=== PATIENT | female | born 1975 | race Caucasian/White ===

== ENCOUNTER → 2016-09-27 | Outpatient (CLI) | payer OTHER ==
[~2016-09-27] MED LIST: AMBI5TAB PO; PROZ20CA11 PO; RISP1TAB3 PO; TRAZ50TA2 PO; VALI2TAB PO; VALI5TAB PO; XANA1TAB2 PO; ZOLO25TA PO
--- NOTE | 2016-09-28 10:01 | SLEEPCENT ---
DATE OF PROCEDURE: 09/27/2016 REQUESTING PROVIDER: Jada Campbell NP INTERPRETATION: Nocturnal polysomnography was performed for the titration of pressure therapy in this patient with obstructive sleep apnea syndrome, confirmed by home testing, which reveals a respiratory event index of 5.1. For testing, a ID Watchdog Simplus full face mask of small size was used, 4 cm of water pressure were applied to the circuit and the lights were extinguished. 7 hours and 15 minutes of data were reviewed. There were 385 minutes of sleep identified. Sleep latency was normal at 12.5 minutes. Rapid eye movement (REM) latency was delayed at 145 minutes. Sleep architecture improved with optimal pressure therapy. There was some evidence of REM rebound. Overall sleep efficiency was 89.5%. The patient's electrocardiogram (EKG) showed a sinus rhythm with an average heart rate of 64 beats per minute. Electroencephalogram (EEG) showed mild coarsening in the background, otherwise normal waveforms for awake and sleep. No focal events were identified. Respiratory events were best palliated with a CPAP at a pressure of +6. CPAP tolerance was good. Remaining measures of sleep physiology were normal. IMPRESSION: 1. Obstructive sleep apnea syndrome (G47.33). RECOMMENDATIONS: Nightly use of pressure therapy at 6 cm of water.
== END ==
LOC: M SLEEP 19:31
PROVIDERS: ATTEND Nurse Practitioner Adult Health
DX: G47.33 Obstructive sleep apnea (adult) (pediatric) (principal)

== ENCOUNTER → 2016-09-29 | Outpatient (CLI) | payer OTHER ==
--- NOTE | 2016-09-29 14:25 | REPMRS ---
Patient History The patient states she has not had a clinical breast exam in over a year. No known family history of cancer. Taking hormonal contraceptives for 21 years. Digital Woman Screen Mammo: September 29, 2016 - Exam #: [id number] Bilateral CC and MLO view(s) were taken. Technologist: Leilani Plunkett, Technologist Prior study comparison: October 06, 2015, digital woman screen mammo performed at [facility]. FINDINGS: There are scattered fibroglandular densities. There is a moderate amount of residual fibroglandular tissue which is fairly symmetric. There is no interval development of dominant mass, architectural distortion, or clustered microcalcification typical of malignancy. There has been no change in the appearance of the mammogram from the prior studies. ASSESSMENT: BI-RADS/ACR category 1 mammogram. Negative. Recommendation Routine screening mammogram of both breasts in 1 year (for women over age 40). This mammogram was interpreted with the aid of an FDA-approved computer-aided dectection system. Electronically Signed By: Mitchell Malloy MD 09/29/16 [id number]
== END ==
LOC: M WHC 12:58
PROVIDERS: ATTEND Nurse Practitioner Family
DX: Z12.31 Encounter for screening mammogram for malignant neoplasm of breast (principal)

== ENCOUNTER → 2016-10-06 | Outpatient (REF) | payer OTHER ==
[2016-10-06 12:24] LABS: BASO # 0.1 K/mm3 (0.0-0.2); BASO % 0.9 % (0.0-1.0); EOS % 0.5 % (0.0-3.0); LARGE UNSTAINED CELL # 0.1 K/mm3 (0.0-0.4); LARGE UNSTAINED CELL % 0.7 % (0.0-4.0); LYMPH # 2.3 K/mm3 (1.5-4.5); LYMPH % 20.7 % (24.0-44.0); MEAN CORPUSCULAR HEMOGLOBIN 31.4 pg (27.0-33.0); MEAN CORPUSCULAR HGB CONC 32.3 g/dl (32.0-36.5); MEAN CORPUSCULAR VOLUME 97.2 fl (80.0-96.0); MONO # 0.4 K/mm3 (0.0-0.8); NEUTROPHILS % 73.2 % (36.0-66.0); PLATELET COUNT, AUTOMATED 283 k/mm3 (150-450); RED CELL DISTRIBUTION WIDTH 12.6 % (11.5-14.5); WHITE BLOOD COUNT 10.9 K/mm3 (4.0-10.0)
[2016-10-06 13:41] LABS: ERYTHROCYTE SEDIMENTATION RATE 13 mm/hr (0-20)
== END ==
LOC: M SFHCPLAZ 08:53
PROVIDERS: ATTEND Internal Medicine Infectious Disease
DX: D72.829 Elevated white blood cell count, unspecified (principal)

== ENCOUNTER → 2017-11-28 | Outpatient (CLI) | payer BC | LOC: M WHC 15:21 | DX: Z12.31 Encounter for screening mammogram for malignant neoplasm of breast (principal); Z92.0 Personal history of contraception | CPT/HCPCS: 77067 ==

== ENCOUNTER → 2018-04-27 | Outpatient (REF) | payer BC ==
[2018-04-27 19:57] LABS: BASO % 0.5 % (0.0-1.0); EOS # 0.2 10^3/uL (0.0-0.50); EOS % 2.9 % (0.0-3.0); HEMATOCRIT 40.2 % (36.0-47.0); HEMOGLOBIN 13.2 g/dl (12.0-15.5); IMMATURE GRANULOCYTE % 0.1 % (0-3.0); LYMPH # 3.6 10^3/uL (1.5-4.5); MEAN CORPUSCULAR HGB CONC 32.8 g/dl (32.0-36.5); MEAN CORPUSCULAR VOLUME 100.5 fl (80.0-96.0); MONO # 0.5 10^3/uL (0.0-0.8); MONO % 6.3 % (0.0-5.0); NEUTROPHILS # 3.6 10^3/uL (1.8-7.7); NEUTROPHILS % 45.2 % (36.0-66.0); PLATELET COUNT, AUTOMATED 242 10^3/uL (150-450); RED CELL DISTRIBUTION WIDTH 12.2 % (11.5-14.5)
[2018-04-27 20:05] LABS: ALBUMIN 3.5 GM/DL (3.2-5.2); ALBUMIN/GLOBULIN RATIO 1.06 (1.00-1.93); ALKALINE PHOSPHATASE 72 U/L (45-117); ALT/SGPT 21 U/L (12-78); ANION GAP 6 MEQ/L (8-16); AST/SGOT 10 U/L (7-37); BILIRUBIN,TOTAL 0.2 MG/DL (0.2-1.0); BLOOD UREA NITROGEN 13 MG/DL (7-18); CALCIUM LEVEL 8.3 MG/DL (8.5-10.1); CARBON DIOXIDE LEVEL 27 MEQ/L (21-32); CHLORIDE LEVEL 111 MEQ/L (98-107); CREATININE FOR GFR 0.79 MG/DL (0.55-1.30); FERRITIN 64 NG/ML (8-252); GLOMERULAR FILTRATION RATE > 60.0 (>58); GLUCOSE, FASTING 75 MG/DL (70-100); IRON (FE) 56 UG/DL (50-170); PERCENT SATURATION 20.8 % (13.2-45.0); POTASSIUM SERUM 4.4 MEQ/L (3.5-5.1); SODIUM LEVEL 144 MEQ/L (136-145); TOTAL IRON BINDING CAPACITY 269 UG/DL (250-450); TOTAL PROTEIN 6.8 GM/DL (6.4-8.2)
[2018-04-27 20:10] LABS: TOTAL 25(OH) VITAMIN D 23.5 NG/ML (30.0-100.0); VITAMIN B12 LEVEL 434 PG/ML (247-911)
[2018-04-27 21:34] LABS: ERYTHROCYTE SEDIMENTATION RATE 10 mm/hr (0-20)
== END ==
LOC: M SFHCLERA 15:19
DX: G43.011 Migraine without aura, intractable, with status migrainosus (principal); D50.9 Iron deficiency anemia, unspecified
CPT/HCPCS: 83550

== ENCOUNTER 2018-12-10 10:36 | Emergency (ER) | payer BC ==
[~2018-12-10] VITALS: Ht 160 cm; Wt 79.5 kg
[2018-12-10] MEDS ORDERED: GI COCKTAIL 50ML BTL(HYOSCYAMINE/MAALOX/LIDOCAINE VISCOUS)(1:3:1) PO ONE (11:00)
[2018-12-10 11:31] LABS: BASO % 0.1 % (0.0-1.0); EOS % 0.4 % (0.0-3.0); HEMATOCRIT 42.1 % (36.0-47.0); HEMOGLOBIN 13.9 g/dl (12.0-15.5); LYMPH # 1.5 10^3/uL (1.5-4.5); LYMPH % 18.3 % (24.0-44.0); MEAN CORPUSCULAR HEMOGLOBIN 32.2 pg (27.0-33.0); MEAN CORPUSCULAR VOLUME 97.5 fl (80.0-96.0); MONO # 0.3 10^3/uL (0.0-0.8); MONO % 3.6 % (0.0-5.0); NEUTROPHILS # 6.4 10^3/uL (1.8-7.7); NEUTROPHILS % 77.2 % (36.0-66.0); PLATELET COUNT, AUTOMATED 183 10^3/uL (150-450); RED BLOOD COUNT 4.32 10^6/uL (4.00-5.40); WHITE BLOOD COUNT 8.3 10^3/uL (4.0-10.0)
--- NOTE | 2018-12-10 11:50 | REP ---
CHEST, TWO VIEWS: There is no evidence of acute infiltrate. No pleural effusion is seen. The heart is normal in size. The mediastinal silhouette is unremarkable. The visualized osseous structures are intact. IMPRESSION: No acute pulmonary disease. Electronically Signed by Alvin Sanchez MD 12/10/2018 06:10 P
[2018-12-10 12:27] LABS: ALBUMIN 3.6 GM/DL (3.2-5.2); ALT/SGPT 86 U/L (12-78); BILIRUBIN,DIRECT 0.2 MG/DL (0.0-0.2); BILIRUBIN,TOTAL 0.4 MG/DL (0.2-1.0); BLOOD UREA NITROGEN 10 MG/DL (7-18); CALCIUM LEVEL 8.1 MG/DL (8.5-10.1); CARBON DIOXIDE LEVEL 21 MEQ/L (21-32); CHLORIDE LEVEL 117 MEQ/L (98-107); CK-MB VALUE MASS < 1.0 NG/ML (<3.6); CPK CREATINE PHOSPHOKINASE 70 U/L (26-192); GLOMERULAR FILTRATION RATE > 60.0 (>58); GLUCOSE, FASTING 103 MG/DL (70-100); LIPASE 4025 U/L (73-393); MB/CK RELATIVE INDEX 1.43 (< OR =4); POTASSIUM SERUM 4.3 MEQ/L (3.5-5.1); SODIUM LEVEL 146 MEQ/L (136-145); TOTAL PROTEIN 6.5 GM/DL (6.4-8.2); TROPONIN I < 0.02 NG/ML (< 0.10)
[2018-12-10] MEDS ORDERED: ISOVUE-370 76% 125ML VIAL (Q9967 PER ML) As Ordered ONE (12:37)
--- NOTE | 2018-12-10 13:56 | REP ---
CT ANGIOGRAM CHEST: TECHNIQUE: Axial contrast enhanced images from the thoracic inlet to the upper abdomen using 100 mL Isovue 370 intravenous contrast material with multiplanar reformations. There is no CT evidence of pulmonary embolism. There is no thoracic aortic aneurysm or dissection. Heart is normal in size. There is no mediastinal, hilar, or chest wall lymphadenopathy. There is no pleural or pericardial effusion. I see no evidence of acute infiltrate in either lung. There is a small hiatal hernia. There are mild degenerative changes of the spine. IMPRESSION: No CT evidence of pulmonary embolism. Small hiatal hernia. Electronically Signed by Alvin Sanchez MD 12/10/2018 06:15 P
[2018-12-10] MEDS ORDERED: OMEP40CA2 PO (14:04)
[2018-12-10] MEDS ORDERED: ONDA4TAB6 PO (14:04)
[2018-12-10] MEDS ORDERED: OXYC-517 PO (14:04)
[2018-12-10 14:17] VITALS: BP 93/59
--- NOTE | 2018-12-10 14:22 | REP ---
CT ABDOMEN AND PELVIS WITH IV CONTRAST: TECHNIQUE: Axial contrast enhanced images from the lung bases to the pubic symphysis using 100 mL Isovue 370 intravenous contrast material with multiplanar reformations. Liver, spleen, adrenals, pancreas, and kidneys are unremarkable. There is no hydronephrosis bilaterally. There is an ill-defined density in the gallbladder lumen probably representing sludge. There is no gallbladder wall thickening or edema. There is no evidence of biliary dilatation. There is no abdominal aortic aneurysm. There is no adenopathy. There is no free air or free fluid. I see no bowel wall thickening. There is no evidence of appendicitis. Dominant follicle of the right ovary measures 2.4 cm in diameter. Urinary bladder appears unremarkable. IMPRESSION: Ill-defined density in the gallbladder lumen probably representing gallbladder sludge. No other acute finding. Electronically Signed by Alvin Sanchez MD 12/10/2018 06:16 P
--- NOTE | 2018-12-10 20:02 | ECGEPIP ---
Stationary ECG Study - ED Test Date: 2018-12-10 Pat Name: CHANTE GOODSON Department: Room: - Gender: F Internet [employer] Intern: ANNIE : 1975 Requested By: SHAUN VILLALTA Order Number: [id number] Reading MD: Dinesh Burton Measurements Intervals [place] Rate: 71 P: 41 NH: 151 QRS: 58 QRSD: 92 T: 35 QT: 393 QTc: 429 Interpretive Statements SINUS RHYTHM WITH SINUS ARRHYTHMIA SIMILAR TO 10/06/13 Electronically Signed On 12-10-2018 20:02:14 EDT by Dinesh Burton
== END 2018-12-10 14:18 | disposition home or self-care (01) ==
LOC: M ED 10:36
DX: K83.9 Disease of biliary tract, unspecified (principal); K85.12 Biliary acute pancreatitis with infected necrosis; F42.9 Obsessive-compulsive disorder, unspecified; G47.00 Insomnia, unspecified; K44.9 Diaphragmatic hernia without obstruction or gangrene; Z79.899 Other long term (current) drug therapy
CPT/HCPCS: 71046; 71275; 74177; 80048; 80076; 82550; 82553; 83690; 84443; 84484; 85025; 85379; 93005; 93041; 94760; 99285; Q9967

== ENCOUNTER → 2018-12-13 | Outpatient (REF) | payer BC ==
[~2018-12-13] MED LIST changes: +OMEP40CA2 PO; +ONDA4TAB6 PO; +OXYC-517 PO
[2018-12-13 16:42] LABS: BASO % 0.4 % (0.0-1.0); EOS # 0.2 10^3/uL (0.0-0.50); EOS % 2.1 % (0.0-3.0); HEMATOCRIT 41.4 % (36.0-47.0); HEMOGLOBIN 13.7 g/dl (12.0-15.5); LYMPH # 3.1 10^3/uL (1.5-4.5); LYMPH % 40.5 % (24.0-44.0); MEAN CORPUSCULAR HGB CONC 33.1 g/dl (32.0-36.5); MEAN CORPUSCULAR VOLUME 96.7 fl (80.0-96.0); MONO # 0.4 10^3/uL (0.0-0.8); MONO % 4.6 % (0.0-5.0); NEUTROPHILS % 52.1 % (36.0-66.0); PLATELET COUNT, AUTOMATED 196 10^3/uL (150-450); RED BLOOD COUNT 4.28 10^6/uL (4.00-5.40); WHITE BLOOD COUNT 7.6 10^3/uL (4.0-10.0)
[2018-12-13 16:51] LABS: HEMOGLOBIN A1c 5.2 %
[2018-12-13 17:08] LABS: ALBUMIN 3.9 GM/DL (3.2-5.2); ALT/SGPT 118 U/L (12-78); BILIRUBIN,TOTAL 0.2 MG/DL (0.2-1.0); BLOOD UREA NITROGEN 13 MG/DL (7-18); CALCIUM LEVEL 8.3 MG/DL (8.5-10.1); CARBON DIOXIDE LEVEL 22 MEQ/L (21-32); CHLORIDE LEVEL 110 MEQ/L (98-107); CREATININE FOR GFR 1.04 MG/DL (0.55-1.30); GLOMERULAR FILTRATION RATE > 60.0 (>58); GLUCOSE, FASTING 71 MG/DL (70-100); LIPASE 106 U/L (73-393); POTASSIUM SERUM 3.9 MEQ/L (3.5-5.1); SODIUM LEVEL 140 MEQ/L (136-145); TOTAL PROTEIN 6.9 GM/DL (6.4-8.2)
[2018-12-13 17:27] LABS: HEPATITIS B SURFACE ANTIGEN NEGATIVE (NEGATIVE)
[2018-12-13 17:54] LABS: HEPATITIS C VIRUS ABY INDEX 0.1 INDEX (<0.8)
[2018-12-13 17:55] LABS: HEPATITIS B CORE ANTIBODY IGM NEGATIVE (NEGATIVE)
[2018-12-13 17:57] LABS: HEPATITIS A ANTIBODY IGM NEGATIVE (NEGATIVE)
== END ==
LOC: M SFHCLERA 14:17
PROVIDERS: ATTEND Family Medicine
DX: K85.90 Acute pancreatitis without necrosis or infection, unspecified (principal); R94.5 Abnormal results of liver function studies

== ENCOUNTER → 2018-12-15 | Outpatient (CLI) | payer BC ==
--- NOTE | 2018-12-15 10:42 | REP ---
Four-quadrant sonography: History: Acute pancreatitis. Comparison CT study December 10, 2018. Sonographic findings: Scanning through right upper quadrant of the abdomen demonstrates a normal sized thin-walled gallbladder containing shadowing calculi. Gallstones are fairly large measuring up to 1.5 cm in greatest diameter. Common bile duct is normal measuring 0.5 cm. No focal liver lesion is seen. No pancreatic abnormality is observed. There is no evidence of ascites or right renal abnormality. The right kidney measures 12.0 x 5.3 x 3.9 cm. Impression: Cholelithiasis. Multiple stones in the gallbladder. Normal common bile duct. No pancreatic abnormality noted. Electronically Signed by Randell Malloy MD 12/15/2018 02:31 P
== END ==
LOC: M LRY 09:14
PROVIDERS: ATTEND Family Medicine
DX: K80.20 Calculus of gallbladder without cholecystitis without obstruction (principal)

== ENCOUNTER → 2018-12-27 | Outpatient (CLI) | payer BC ==
[2018-12-27 11:50] LABS: HEMATOCRIT 39.2 % (36.0-47.0); HEMOGLOBIN 12.8 g/dl (12.0-15.5); MEAN CORPUSCULAR HGB CONC 32.7 g/dl (32.0-36.5); PLATELET COUNT, AUTOMATED 224 10^3/uL (150-450); WHITE BLOOD COUNT 11.7 10^3/uL (4.0-10.0)
[2018-12-27 12:23] LABS: ALBUMIN 3.6 GM/DL (3.2-5.2); ALT/SGPT 78 U/L (12-78); BILIRUBIN,TOTAL 0.2 MG/DL (0.2-1.0); BLOOD UREA NITROGEN 10 MG/DL (7-18); CALCIUM LEVEL 8.2 MG/DL (8.5-10.1); CARBON DIOXIDE LEVEL 21 MEQ/L (21-32); CHLORIDE LEVEL 115 MEQ/L (98-107); CREATININE FOR GFR 1.02 MG/DL (0.55-1.30); GLOMERULAR FILTRATION RATE > 60.0 (>58); GLUCOSE, FASTING 83 MG/DL (70-100); LIPASE 122 U/L (73-393); POTASSIUM SERUM 3.9 MEQ/L (3.5-5.1); SODIUM LEVEL 142 MEQ/L (136-145); TOTAL PROTEIN 6.2 GM/DL (6.4-8.2)
== END ==
LOC: M LAB 11:04
PROVIDERS: ATTEND Surgery
DX: R10.11 Right upper quadrant pain (principal)

== ENCOUNTER → 2018-12-28 | Outpatient (CLI) | payer BC ==
[2018-12-28 12:41] LABS: BASO % 0.3 % (0.0-1.0); EOS # 0.1 10^3/uL (0.0-0.50); EOS % 0.9 % (0.0-3.0); HEMATOCRIT 39.2 % (36.0-47.0); HEMOGLOBIN 12.9 g/dl (12.0-15.5); LYMPH # 2.7 10^3/uL (1.5-4.5); LYMPH % 26.3 % (24.0-44.0); MEAN CORPUSCULAR HEMOGLOBIN 31.9 pg (27.0-33.0); MEAN CORPUSCULAR HGB CONC 32.9 g/dl (32.0-36.5); MEAN CORPUSCULAR VOLUME 96.8 fl (80.0-96.0); MONO # 0.4 10^3/uL (0.0-0.8); MONO % 3.6 % (0.0-5.0); NEUTROPHILS # 6.9 10^3/uL (1.8-7.7); NEUTROPHILS % 68.6 % (36.0-66.0); PLATELET COUNT, AUTOMATED 218 10^3/uL (150-450); RED BLOOD COUNT 4.05 10^6/uL (4.00-5.40); WHITE BLOOD COUNT 10.1 10^3/uL (4.0-10.0)
[2018-12-28 13:10] LABS: ALBUMIN 3.5 GM/DL (3.2-5.2); BILIRUBIN,DIRECT 0.1 MG/DL (0.0-0.2); BILIRUBIN,TOTAL 0.3 MG/DL (0.2-1.0); TOTAL PROTEIN 6.4 GM/DL (6.4-8.2)
== END ==
LOC: M LAB 12:13
PROVIDERS: ATTEND Internal Medicine Gastroenterology
DX: R10.816 Epigastric abdominal tenderness (principal)

== ENCOUNTER 2019-01-16 13:55 | Day surgery (SDC) | payer BC ==
[~2019-01-16] VITALS: Ht 160 cm; Wt 77.6 kg
[~2019-01-16 13:55] MED LIST changes: +BUTA1CAP PO; +FLUV100T2 PO; +IBUP-1114 PO; +LIDOCAINE 1% MDV 20ML VIAL SQ PRN; +LR 1,000 ML IV ONE; +ORTH1TAB15 PO; +PANT40TA3 PO; +TOPI200T7 PO; +TRAZ150T90 PO; +ceFAZolin SOD 1 GM in D5W MINI-BAG PLUS 50 ML IV ONE
[2019-01-16 14:24] LABS: URINE PREG TEST NEGATIVE (NEGATIVE)
[2019-01-16 15:04] LABS: BILIRUBIN,TOTAL 0.3 MG/DL (0.2-1.0); CALCIUM LEVEL 8.7 MG/DL (8.5-10.1); CREATININE FOR GFR 1.22 MG/DL (0.55-1.30); GLOMERULAR FILTRATION RATE 50.7 (>58); TOTAL PROTEIN 7.5 GM/DL (6.4-8.2)
[2019-01-16] MEDS ORDERED: BUPIVACAINE HCL 0.25% 30 ML VIAL As Ordered ONE (15:13)
[2019-01-16] MEDS ORDERED: CONRAY-60 60% 50ML VIAL (Q9961) As Ordered ONE (15:13)
[2019-01-16] MEDS ORDERED: GLUCAGON FOR INJ 1 MG VIAL (J1610) As Ordered ONE (15:13)
[2019-01-16] MEDS ORDERED: ROCURONIUM BROMIDE 50 MG/5 ML VIAL As Ordered ONE (15:19)
[2019-01-16] MEDS ORDERED: PROPOFOL 200 MG/20 ML VIAL As Ordered ONE (15:19)
[2019-01-16] MEDS ORDERED: fentaNYL 100 MCG/2 ML INJECTION (J3010) As Ordered ONE ×2 (15:19→16:02)
[2019-01-16] MEDS ORDERED: MIDAZOLAM INJ 2 MG/2 ML VIAL (J2250) As Ordered ONE (15:20)
[2019-01-16] MEDS ORDERED: LIDOCAINE 2% INJ 100 MG/5 ML SDV (FOR ANES.) As Ordered ONE (15:20)
[2019-01-16] MEDS ORDERED: BUPIVACAINE/EPIN 0.25% 30 ML VIAL As Ordered ONE (15:42)
[2019-01-16] MEDS ORDERED: ONDANSETRON 4MG/2ML VIAL (J2405) As Ordered ONE (16:42)
[2019-01-16] MEDS ORDERED: dexameTHASONE 4 MG/ML 1ML VIAL (J1100) As Ordered ONE (16:42)
[2019-01-16] MEDS ORDERED: KETOROLAC 60 MG/2 ML VIAL (J1885) As Ordered ONE (16:42)
[2019-01-16] MEDS ORDERED: NEOSTIGMINE 10 MG/10 ML VIAL (J2710) As Ordered ONE (16:48)
[2019-01-16] MEDS ORDERED: GLYCOPYRROLATE INJ 0.2 MG/ML 2 ML VIAL As Ordered ONE (16:48)
[2019-01-16] MEDS ORDERED: PERCOCET 5MG/325MG TAB PO PRN (17:00)
[2019-01-16] MEDS ORDERED: ONDANSETRON 4MG/2ML VIAL (J2405) IV PRN ×2 (17:00)
[2019-01-16] MEDS ORDERED: NORCO, ANEXSIA 5/325MG TABLET (HYDROcodone/ACETAMINOPHEN) PO PRN (17:00)
[2019-01-16] MEDS ORDERED: LR 1,000 ML IV SCH ×2 (17:00)
[2019-01-16] MEDS ORDERED: HYDROMORPHONE HCL 0.5 MG/ 0.5 ML SYRINGE (J1170 PER 1) IV PRN (17:00)
[2019-01-16] MEDS: fentaNYL 100 MCG/2 ML INJECTION (J3010) IV PRN ×4 (17:10→17:32)
[2019-01-16 19:25] VITALS: BP 103/54
--- NOTE | 2019-01-19 13:26 | RO ---
DATE OF PROCEDURE: 01/16/2019 PREOPERATIVE DIAGNOSIS: Symptomatic gallstones. POSTOPERATIVE DIAGNOSIS: Symptomatic gallstones. PROCEDURE: Laparoscopic cholecystectomy. SURGEON: Kushal Espinoza Jr., MD BURLESQUE DANCER: ANESTHESIA: General endotracheal anesthesia. ESTIMATED BLOOD LOSS: Minimal. FLUIDS: Crystalloid. PROCEDURE SUMMARY: The patient was brought to the operating room was given general anesthesia. After adequate anesthesia and preoperative antibiotics were given, the patient was prepped and draped in the usual sterile fashion. Next, a supraumbilical incision was made with skin knife. Blunt dissection was carried down to fascia. Veress needle placed into the abdominal cavity, insufflated to 15 mm of pressure. A dilating at 10 mm trocar was placed at this time and under direct visualization an epigastric and two lateral trocars were placed. Gallbladder was grasped, retracted superiorly and there were some adhesions to the neck of the gallbladder that were taken down with hook cautery, but otherwise mobilized quite nicely. The neck of the gallbladder was then cleared of peritoneum using the hook cautery and this was performed circumferentially around the neck of the gallbladder taking care to see the cystic artery, and the cystic artery was followed up onto the gallbladder itself, and once this was readily identified it was clipped proximally, distally and transected. A better window behind the neck of the gallbladder was created to visualize the neck of the gallbladder narrowing down into the cystic duct area and medial to this, the common bile duct could be easily identified. This was far away and in general after a good window behind the neck of the gallbladder all the way up to the cystic plate had been dissected, the gallbladder neck/cystic duct junction was clipped proximally and distally and transected. The gallbladder was then removed from the gallbladder bed using electrocautery. There was a small vessel going into the midportion of the gallbladder which was clipped as well, appeared to be a vein, but otherwise the gallbladder was removed in its entirety, placed in an Endo Catch bag and brought out through the umbilicus. All trocars were removed under direct visualization. #0 Vicryl was used to close the fascia at the umbilicus and #4-0 Vicryl was used to close all incisions. Steri-Strips and a dry sterile dressing was applied. The patient was awakened, extubated, brought to the recovery room awake, alert and hemodynamically stable. Sponge and needle counts were correct times two.
== END 2019-01-16 19:30 | disposition home or self-care (01) ==
LOC: M SDC 13:55
PROVIDERS: ATTEND Surgery
DX: K80.10 Calculus of gallbladder with chronic cholecystitis without obstruction (principal); K21.9 Gastro-esophageal reflux disease without esophagitis; G43.909 Migraine, unspecified, not intractable, without status migrainosus; F42.9 Obsessive-compulsive disorder, unspecified; Z79.899 Other long term (current) drug therapy; Z72.0 Tobacco use
CPT/HCPCS: 36415; 47562; 80053; 84703; 88304; J0690; J1100; J1610; J1885; J2250; J2405; J2710; J3010; Q9961

== ENCOUNTER 2019-03-08 12:32 | Emergency (ER) | payer BC ==
[~2019-03-08] VITALS: Ht 160 cm; Wt 74.6 kg
[~2019-03-08 12:32] MED LIST changes: -LIDOCAINE 1% MDV 20ML VIAL SQ PRN; -LR 1,000 ML IV ONE; -ceFAZolin SOD 1 GM in D5W MINI-BAG PLUS 50 ML IV ONE
[2019-03-08] MEDS ORDERED: IBUP80TA (12:40)
[2019-03-08] MEDS ORDERED: NS 1,000 ML IV ONE (12:45)
[2019-03-08 13:11] LABS: BASO % 0.3 % (0.0-1.0); EOS # 0.1 10^3/uL (0.0-0.50); EOS % 0.8 % (0.0-3.0); HEMATOCRIT 43.3 % (36.0-47.0); HEMOGLOBIN 14.7 g/dl (12.0-15.5); LYMPH # 3.4 10^3/uL (1.5-4.5); MEAN CORPUSCULAR HEMOGLOBIN 32.9 pg (27.0-33.0); MEAN CORPUSCULAR HGB CONC 33.9 g/dl (32.0-36.5); MEAN CORPUSCULAR VOLUME 96.9 fl (80.0-96.0); MONO # 0.4 10^3/uL (0.0-0.8); MONO % 3.2 % (0.0-5.0); NEUTROPHILS # 8.1 10^3/uL (1.8-7.7); NEUTROPHILS % 67.4 % (36.0-66.0); PLATELET COUNT, AUTOMATED 257 10^3/uL (150-450); RED BLOOD COUNT 4.47 10^6/uL (4.00-5.40)
--- NOTE | 2019-03-08 13:26 | REP ---
CT ABDOMEN/PELVIS WITHOUT CONTRAST: CT abdomen/pelvis performed without oral or IV contrast. Sagittal and coronal reconstruction images are performed. COMPARISON: 12/10/2018 Visualized lung bases are clear. The liver is grossly unremarkable. The patient has had a prior cholecystectomy. There is no biliary dilatation. The spleen, adrenals, and pancreas are unremarkable. Punctate calcification is seen in the lower pole of the right kidney. There is no right hydronephrosis. There is moderate left hydroureteronephrosis caused by 3 mm stone in the distal left ureter. Urinary bladder is collapsed with no definite intraluminal calculus. There is no abdominal aortic aneurysm. There is no adenopathy. There is no free air or free fluid. There is no bowel wall thickening. I see no pelvic mass. There are degenerative changes of the spine. There is a small hiatal hernia. IMPRESSION: There is moderate left hydroureteronephrosis caused by a 3 mm calculus in the distal left ureter. Electronically Signed by Alvin Sanchez MD 03/09/2019 09:23 A
[2019-03-08] MEDS ORDERED: ONDANSETRON 4MG/2ML VIAL (J2405) IV ONE (13:30)
[2019-03-08 13:42] LABS: ALT/SGPT 26 U/L (12-78); BILIRUBIN,DIRECT 0.1 MG/DL (0.0-0.2); BILIRUBIN,TOTAL 0.3 MG/DL (0.2-1.0); BLOOD UREA NITROGEN 10 MG/DL (7-18); CALCIUM LEVEL 8.9 MG/DL (8.5-10.1); CARBON DIOXIDE LEVEL 19 MEQ/L (21-32); CHLORIDE LEVEL 113 MEQ/L (98-107); CREATININE FOR GFR 1.02 MG/DL (0.55-1.30); GLOMERULAR FILTRATION RATE > 60.0 (>58); GLUCOSE, FASTING 102 MG/DL (70-100); LIPASE 99 U/L (73-393); POTASSIUM SERUM 3.7 MEQ/L (3.5-5.1); SODIUM LEVEL 141 MEQ/L (136-145); TOTAL PROTEIN 7.5 GM/DL (6.4-8.2)
[2019-03-08] MEDS ORDERED: KETOROLAC 30 MG/ML VIAL (J1885) IV ONE (14:15)
[2019-03-08] MEDS ORDERED: MORPHINE 4 MG/ML 1ML VIAL/SYRINGE (J2270) IV ONE (15:15)
[2019-03-08] MEDS ORDERED: PROMETHAZINE INJ 25 MG/ML VIAL (J2550) IV ONE (15:15)
[2019-03-08] MEDS ORDERED: IBUP-1022 PO (16:35)
[2019-03-08] MEDS ORDERED: NORC1TAB7 PO (16:35)
[2019-03-08] MEDS ORDERED: PROM12.56 PO (16:35)
[2019-03-08] MEDS ORDERED: CIPR-249 PO (16:35)
[2019-03-08] MEDS ORDERED: FLOM0.4C39 PO (16:35)
[2019-03-08 17:00] VITALS: BP 112/55
== END 2019-03-08 17:02 | disposition home or self-care (01) ==
LOC: M ED 12:32
DX: N20.1 Calculus of ureter (principal); N13.30 Unspecified hydronephrosis; K80.20 Calculus of gallbladder without cholecystitis without obstruction; K21.9 Gastro-esophageal reflux disease without esophagitis; G43.909 Migraine, unspecified, not intractable, without status migrainosus; G47.00 Insomnia, unspecified; Z72.0 Tobacco use; Z79.899 Other long term (current) drug therapy
CPT/HCPCS: 74176; 80048; 80076; 81001; 83690; 85025; 87086; 96374; 96375; 99284; J1885; J2270; J2405

== ENCOUNTER 2019-03-10 12:50 | Day surgery (SDC) | payer BC ==
[~2019-03-10] VITALS: Ht 160 cm; Wt 77.3 kg
[~2019-03-10 12:50] MED LIST changes: +CIPR-249 PO; +FLOM0.4C39 PO; +IBUP-1022 PO; +IBUP80TA; +NORC1TAB7 PO; +PROM12.56 PO
[2019-03-10 13:31] LABS: BASO % 0.2 % (0.0-1.0); HEMATOCRIT 42.7 % (36.0-47.0); HEMOGLOBIN 14.6 g/dl (12.0-15.5); LYMPH # 1.4 10^3/uL (1.5-4.5); LYMPH % 7.8 % (24.0-44.0); MEAN CORPUSCULAR HEMOGLOBIN 33.3 pg (27.0-33.0); MEAN CORPUSCULAR HGB CONC 34.2 g/dl (32.0-36.5); MEAN CORPUSCULAR VOLUME 97.5 fl (80.0-96.0); MONO # 0.7 10^3/uL (0.0-0.8); NEUTROPHILS # 15.7 10^3/uL (1.8-7.7); NEUTROPHILS % 87.6 % (36.0-66.0); PLATELET COUNT, AUTOMATED 208 10^3/uL (150-450); RED BLOOD COUNT 4.38 10^6/uL (4.00-5.40); WHITE BLOOD COUNT 17.9 10^3/uL (4.0-10.0)
[2019-03-10] MEDS ORDERED: NS 500 ML IV ONE (13:45)
[2019-03-10] MEDS ORDERED: ONDANSETRON 4MG/2ML VIAL (J2405) IV ONE (13:45)
[2019-03-10] MEDS ORDERED: MORPHINE 4 MG/ML 1ML VIAL/SYRINGE (J2270) IV ONE (13:45)
[2019-03-10 14:14] LABS: ALBUMIN 3.6 GM/DL (3.2-5.2); BILIRUBIN,DIRECT 0.2 MG/DL (0.0-0.2); BILIRUBIN,TOTAL 0.5 MG/DL (0.2-1.0); CALCIUM LEVEL 8.8 MG/DL (8.5-10.1); CREATININE FOR GFR 1.33 MG/DL (0.55-1.30); GLOMERULAR FILTRATION RATE 45.9 (>58); POTASSIUM SERUM 3.4 MEQ/L (3.5-5.1); TOTAL PROTEIN 7.4 GM/DL (6.4-8.2)
[2019-03-10] MEDS ORDERED: KETOROLAC 30 MG/ML VIAL (J1885) IV ONE (15:00)
[2019-03-10] MEDS ORDERED: KETOROLAC 30 MG/ML VIAL (J1885) As Ordered ONE (15:05)
[2019-03-10] MEDS ORDERED: CONRAY-60 60% 50ML VIAL (Q9961) As Ordered ONE (15:08)
[2019-03-10] MEDS ORDERED: IBUP80TA PO (15:16)
[2019-03-10] MEDS ORDERED: DEBL1TAB PO (15:16)
[2019-03-10] MEDS ORDERED: CIPR500T3 PO (15:16)
[2019-03-10] MEDS ORDERED: CIPROFLOXACIN/D5W 400 MG/200 ML BAG (J0744) As Ordered ONE (15:22)
[2019-03-10] MEDS ORDERED: ONDANSETRON 4MG/2ML VIAL (J2405) As Ordered ONE (15:28)
[2019-03-10] MEDS ORDERED: PROPOFOL 200 MG/20 ML VIAL As Ordered ONE (15:28)
[2019-03-10] MEDS ORDERED: LIDOCAINE 2% INJ 100 MG/5 ML SDV (FOR ANES.) As Ordered ONE (15:28)
[2019-03-10] MEDS ORDERED: fentaNYL 100 MCG/2 ML INJECTION (J3010) As Ordered ONE (15:28)
[2019-03-10] MEDS ORDERED: ROCURONIUM BROMIDE 50 MG/5 ML VIAL As Ordered ONE (15:28)
[2019-03-10] MEDS ORDERED: dexameTHASONE 4 MG/ML 1ML VIAL (J1100) As Ordered ONE (15:28)
[2019-03-10] MEDS ORDERED: MIDAZOLAM INJ 2 MG/2 ML VIAL (J2250) As Ordered ONE (15:28)
[2019-03-10] MEDS ORDERED: ACETAMINOPHEN 1000MG 100ML IV BTL (OFIRMEV) (J0131 PER 10MG) As Ordered ONE (15:52)
[2019-03-10] MEDS ORDERED: fentaNYL 100 MCG/2 ML INJECTION (J3010) IV PRN (16:30)
[2019-03-10] MEDS ORDERED: LR 1,000 ML IV SCH (16:30)
[2019-03-10] MEDS ORDERED: PERCOCET 5MG/325MG TAB PO PRN (16:30)
[2019-03-10] MEDS ORDERED: ONDANSETRON 4MG/2ML VIAL (J2405) IV PRN (16:30)
[2019-03-10] MEDS ORDERED: oxyCODONE 5MG TAB As Ordered ONE (16:40)
[2019-03-10] MEDS ORDERED: PHENAZOPYRIDINE 100 MG TAB PO ONE (16:45)
[2019-03-10] MEDS ORDERED: PERCOCET 5MG/325MG TAB PO ONE (16:45)
[2019-03-10] MEDS ORDERED: oxyCODONE 5MG TAB PO ONE (16:45)
[2019-03-10 17:10] VITALS: BP 110/52
[2019-03-10 17:40] VITALS: BP 110/59
[2019-03-10 18:10] VITALS: BP 123/58
[2019-03-10 19:10] VITALS: BP 121/58
[2019-03-10 20:00] VITALS: BP 109/55
--- NOTE | 2019-03-12 14:44 | RO ---
DATE OF OPERATION: 03/10/2019 PREOPERATIVE DIAGNOSIS: Obstructing distal left ureteral calculus with refractory pain. POSTOPERATIVE DIAGNOSIS: Obstructing distal left ureteral calculus with refractory pain. PROCEDURE PERFORMED: Cystoscopy, left ureteroscopy with balloon dilatation, and fragmentation of calculus, double-J stent placement. SURGEON: Dwaine Dumont MD SIDE GLUER: ANESTHESIA: General. DESCRIPTION OF PROCEDURE: The patient was brought to the operating room, placed on the operating room table in the supine position. After induction of adequate anesthesia, the patient was placed in the dorsal lithotomy position. Her lower abdomen and genitalia were prepped and draped in the usual sterile manner. Cystopanendoscopy was performed using the rigid 21-Angolan cystoscope sheath with 30- and 70-degree lenses. The bladder was smooth-walled and free of any stones, clots, or tumors. The ureteral orifices were normal in location and configuration. A 0.03 wire was passed up the left orifice with immediate return of very murky-looking urine with the appearance of old blood and debris. The orifice was cleared to accommodate the ureteroscope; and, therefore, a balloon was used to dilate to 10 atmospheres of pressure. The rigid ureteroscope was then passed alongside the wire, where a fragmented stone was identified just proximal to an area of significant ureteral edema and inflamed irregular-appearing mucosa. The stone had apparently been broken into smaller pieces with the balloon, pieces that were too small to really necessitate a laser. A basket was passed through the instrument, but in the time in took to open the basket and pass it through the instrument, the largest of the fragments measuring maybe 1-2 mm in size washed out into the bladder without even being able to basket it. The ureter was inspected up to the level of the midureter in the antegrade and retrograde direction with no other stones seen. The ureteroscope was removed under direct vision again without any visible remaining calculi. A 5-Angolan [place] ureteral stent was passed over the wire into the renal pelvis without any difficulty. The wire was removed with the stent remaining in good position. There was a number of fragments of stone within the bladder, but these did not wash out through the sheath. When the working element was removed, the sheath was then removed, and the procedure terminated. The patient tolerated the procedure well, was transported in stable condition to recovery.
== END 2019-03-10 20:15 | disposition home or self-care (01) ==
LOC: M ED 12:50 → M SDC 14:50 → M PED 17:10 → M SDC 20:15
PROVIDERS: ATTEND Urology
DX: N20.1 Calculus of ureter (principal); G43.909 Migraine, unspecified, not intractable, without status migrainosus; K21.9 Gastro-esophageal reflux disease without esophagitis; Z79.899 Other long term (current) drug therapy; F17.210 Nicotine dependence, cigarettes, uncomplicated
CPT/HCPCS: 52332; 52341; 80048; 80076; 81001; 82150; 83690; 85025; 96361; 96374; 96375; 99284; C1769; C2617; J0131; J0744; J1100; J1885; J2250; J2270; J2405; J3010

== ENCOUNTER → 2019-06-04 | Outpatient (REF) | payer BC ==
[~2019-06-04] MED LIST changes: +CIPR500T3 PO; +DEBL1TAB PO; +IBUP80TA PO; -ORTH1TAB15 PO; +ORTH1TAB8 PO
[2019-06-11 08:09] LABS: BORDETELLA PARAPERTUSSIS PCR Negative (Negative); BORDETELLA PERTUSSIS BY PCR Negative (Negative)
== END ==
LOC: M SFHCLERA 17:00
PROVIDERS: ATTEND Family Medicine
DX: R05 Cough (principal)

== ENCOUNTER → 2019-06-04 | Outpatient (CLI) | payer BC ==
[~2019-06-04] MED LIST changes: -OMEP40CA2 PO; +OMEP40CA97 PO
--- NOTE | 2019-06-05 03:45 | REP ---
Clinical: Cough . Comparison: 12/10/2018 . Technique: PA and lateral. Findings: The mediastinum and cardiac silhouette are normal. The lung bui are clear and without acute consolidation, effusion, or pneumothorax. The skeletal structures are intact and normal. Impression: 1. No acute cardiopulmonary process. Electronically Signed by Daryl Kingston MD 06/05/2019 03:36 A
== END ==
LOC: M LRY 10:55
PROVIDERS: ATTEND Family Medicine
DX: R05 Cough (principal)

== ENCOUNTER → 2019-06-26 | Outpatient (CLI) | payer BC ==
[~2019-06-26] MED LIST changes: +OMEP40CA2 PO; -OMEP40CA97 PO
--- NOTE | 2019-06-26 16:29 | REPMRS ---
Patient History The patient states she has not had a clinical breast exam in over a year. No known family history of cancer. Taking hormonal contraceptives for 23 years 7 months. 3D TOMOSYNTHESIS WAS PERFORMED. [facility]%. Digital Woman Screen Mammo: June 26, 2019 - Exam #: [id number] Bilateral CC and MLO view(s) were taken. Technologist: Mirta De La Garza Technologist Prior study comparison: November 28, 2017, digital woman screen mammo performed at [facility]. September 29, 2016, digital woman screen mammo performed at [facility] [employer] [facility]. FINDINGS: The breast tissue is heterogeneously dense. This may lower the sensitivity of mammography. There has been no change in the appearance of the mammogram from the prior studies. There is a moderate amount of residual fibroglandular tissue which is fairly symmetric. There is no interval development of dominant mass, areas of architectural distortion, or clustered microcalcification typical of malignancy. Assessment: BI-RADS/ACR category 1 mammogram. Negative Mammogram. Recommendation Routine screening mammogram in 1 year (for women over age 40). This mammogram was interpreted with the aid of an FDA-approved computer-aided dectection system. Electronically Signed By: Alvin Sanchez MD 06/26/19 [id number]
== END ==
LOC: M WHC 15:35
PROVIDERS: ATTEND Family Medicine
DX: Z12.31 Encounter for screening mammogram for malignant neoplasm of breast (principal); Z79.3 Long term (current) use of hormonal contraceptives

== ENCOUNTER → 2020-10-21 | Outpatient (CLI) | payer OTHER ==
[~2020-10-21] MED LIST changes: -OMEP40CA2 PO; +OMEP40CA97 PO; +PANT40TA29 PO; -PANT40TA3 PO
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
== END ==
LOC: M WUC 12:26
PROVIDERS: ATTEND Family Medicine
DX: M79.644 Pain in right finger(s) (principal)

== ENCOUNTER 2021-02-16 20:24 | Emergency (ER) | payer OTHER ==
[~2021-02-16] VITALS: Ht 160 cm; Wt 76.9 kg
[2021-02-16] MEDS ORDERED: FLUO20CA22 (20:33)
[2021-02-16] MEDS ORDERED: NORG1TAB33 (20:33)
[2021-02-16] MEDS ORDERED: methocarbamoL 750 MG TAB PO ONE (20:45)
[2021-02-16] MEDS ORDERED: KETOROLAC 60MG 2ML VIAL IM ONE (20:45)
[2021-02-16] MEDS ORDERED: diazePAM 5MG TABLET PO ONE (21:35)
[2021-02-16] MEDS ORDERED: NORCO, ANEXSIA 5/325MG TABLET (HYDROcodone/ACETAMINOPHEN) PO ONE (22:15)
[2021-02-16] MEDS ORDERED: KETO10TAB PO (22:38)
[2021-02-16] MEDS ORDERED: METH-1165 PO (22:38)
[2021-02-16] MEDS ORDERED: NORCO 5/325MG TABLET (BULK FOR ED) PO ONE (22:40)
[2021-02-16 22:48] VITALS: BP 96/60
== END 2021-02-16 22:52 | disposition home or self-care (01) ==
LOC: M ED 20:24
DX: S39.012A Strain of muscle, fascia and tendon of lower back, initial encounter (principal); X50.9XXA Other and unspecified overexertion or strenuous movements or postures, initial encounter; Y92.89 Other specified places as the place of occurrence of the external cause; Y93.89 Activity, other specified; Y99.8 Other external cause status; K21.9 Gastro-esophageal reflux disease without esophagitis; F17.210 Nicotine dependence, cigarettes, uncomplicated; Z79.890 Hormone replacement therapy; Z86.69 Personal history of other diseases of the nervous system and sense organs
CPT/HCPCS: 96372; 99283; J1885

== ENCOUNTER → 2021-10-01 | Outpatient (CLI) | payer BC, OTHER ==
[~2021-10-01] MED LIST changes: +FLUO20CA22; -FLUV100T2 PO; +FLUV100T25 PO; +KETO10TAB PO; +METH-1165 PO; +NORG1TAB33; +OMEP40CA4 PO; -OMEP40CA97 PO
== END ==
LOC: M WHC 15:20
PROVIDERS: ATTEND Family Medicine
DX: Z12.31 Encounter for screening mammogram for malignant neoplasm of breast (principal)

== ENCOUNTER → 2021-10-06 | Outpatient (CLI) | payer OTHER | LOC: M WHC 10:56 | PROVIDERS: ATTEND Family Medicine | DX: Z12.31 Encounter for screening mammogram for malignant neoplasm of breast (principal); N63.12 Unspecified lump in the right breast, upper inner quadrant | CPT/HCPCS: 76642; 77065; G0279 ==

== ENCOUNTER → 2021-10-29 | Outpatient (CLI) | payer OTHER ==
[~2021-10-29] MED LIST changes: +**SFHN** LIDOCAINE 1% MDV 20ML VIAL ONE; +**SFHN** SODIUM BICARBONATE 8.4% 10MEQ 10ML VIAL ONE
[2021-10-29 15:05] VITALS: BP 106/70
== END ==
LOC: M WHCPRO 14:03
PROVIDERS: ATTEND Family Medicine
DX: N60.21 Fibroadenosis of right breast (principal); D24.1 Benign neoplasm of right breast
CPT/HCPCS: 19083; 77065; 88305; G0279

== ENCOUNTER → 2021-11-17 | Outpatient (CLI) | payer OTHER ==
[~2021-11-17] MED LIST changes: -**SFHN** LIDOCAINE 1% MDV 20ML VIAL ONE; -**SFHN** SODIUM BICARBONATE 8.4% 10MEQ 10ML VIAL ONE
== END ==
LOC: M WUC 08:48
DX: R10.10 Upper abdominal pain, unspecified (principal)

== ENCOUNTER → 2023-03-15 | Outpatient (CLI) | payer OTHER ==
[2023-03-15 15:46] LABS: BASO % 0.3 % (0.0-1.0); EOS % 0.4 % (0.0-3.0); HEMATOCRIT 45.9 % (36.0-47.0); HEMOGLOBIN 14.9 g/dl (12.0-15.5); LYMPH # 3.2 10^3/uL (1.5-5.0); LYMPH % 33.8 % (24.0-44.0); MEAN CORPUSCULAR HEMOGLOBIN 31.7 pg (27.0-33.0); MEAN CORPUSCULAR HGB CONC 32.5 g/dl (32.0-36.5); MEAN CORPUSCULAR VOLUME 97.7 fl (80.0-96.0); MONO # 0.4 10^3/uL (0.0-0.8); MONO % 3.9 % (2.0-8.0); NEUTROPHILS # 5.9 10^3/uL (1.5-8.5); NEUTROPHILS % 61.3 % (36.0-66.0); PLATELET COUNT, AUTOMATED 259 10^3/uL (150-450); WHITE BLOOD COUNT 9.6 10^3/uL (4.0-10.0)
[2023-03-15 16:18] LABS: ALBUMIN 3.4 G/DL (3.2-5.2); ALKALINE PHOSPHATASE 53 U/L (46-116); ALT/SGPT 16 U/L (7.0-40); AST/SGOT < 8 U/L (<34); BILIRUBIN,TOTAL 0.3 MG/DL (0.3-1.2); BLOOD UREA NITROGEN 15 MG/DL (9-23); CALCIUM LEVEL 9.7 MG/DL (8.5-10.1); CARBON DIOXIDE LEVEL 24 MMOL/L (20-31); CHLORIDE LEVEL 105 MMOL/L (98-107); CHOLESTEROL LEVEL 186 MG/DL (<200); CHOLESTEROL RISK RATIO 4.52 (<5); CREATININE FOR GFR 0.81 MG/DL (0.55-1.30); FREE T4 0.94 NG/DL (0.89-1.76); GLOMERULAR FILTRATION RATE > 60.0 (>58); GLUCOSE, FASTING 79 MG/DL (60-100); HDL CHOLESTEROL 41.1 MG/DL (>40); LDL CHOLESTEROL 95.3 MG/DL (<100); NON-HDL-C 144.9 MG/DL; POTASSIUM SERUM 4.2 MMOL/L (3.5-5.1); SODIUM LEVEL 134 MMOL/L (136-145); THYROID STIMULATING HORMONE 2.097 uIU/ML (0.55-4.78); TOTAL PROTEIN 6.6 G/DL (5.7-8.2); TRIGLYCERIDES LEVEL 248 MG/DL (<150)
[2023-03-15 16:37] LABS: HEMOGLOBIN A1c 5.1 % (4.0-6.0)
== END ==
LOC: M PLALAB 12:27
PROVIDERS: ATTEND Family Medicine
DX: Z79.899 Other long term (current) drug therapy (principal); E66.3 Overweight

== ENCOUNTER → 2023-03-28 | Outpatient (CLI) | payer OTHER | LOC: M WHC 14:31 | PROVIDERS: ATTEND Family Medicine | DX: R92.8 Other abnormal and inconclusive findings on diagnostic imaging of breast (principal) ==

== ENCOUNTER → 2023-08-29 | Outpatient (CLI) | payer OTHER | LOC: M SLEEP HO 12:05 | PROVIDERS: ATTEND Nurse Practitioner Family | DX: G47.33 Obstructive sleep apnea (adult) (pediatric) (principal) ==

== ENCOUNTER → 2023-11-09 | Outpatient (CLI) | payer OTHER | LOC: M PLAIMG 15:37 | PROVIDERS: ATTEND Family Medicine | DX: M19.011 Primary osteoarthritis, right shoulder (principal) ==

== ENCOUNTER → 2023-12-30 | Outpatient (CLI) | payer OTHER | LOC: M SLEEP 20:00 | PROVIDERS: ATTEND Nurse Practitioner Family | DX: G47.33 Obstructive sleep apnea (adult) (pediatric) (principal) ==

== ENCOUNTER → 2024-02-07 | Outpatient (CLI) | payer OTHER | LOC: M RAD 18:22 | PROVIDERS: ATTEND Nurse Practitioner Family | DX: R06.02 Shortness of breath (principal) ==

== ENCOUNTER → 2024-04-10 | Outpatient (CLI) | payer OTHER ==
[~2024-04-10] MED LIST changes: +FLUO-365; -FLUO20CA22; +ONDA-282 PO; -ONDA4TAB6 PO
== END ==
LOC: M WHC 15:29
PROVIDERS: ATTEND Family Medicine
DX: Z12.31 Encounter for screening mammogram for malignant neoplasm of breast (principal)

== ENCOUNTER → 2024-04-18 | Outpatient (CLI) | payer OTHER | LOC: M WHC 13:00 | PROVIDERS: ATTEND Family Medicine | DX: Z12.31 Encounter for screening mammogram for malignant neoplasm of breast (principal) | CPT/HCPCS: 76642; 77065; G0279 ==

== ENCOUNTER → 2025-04-19 | Outpatient (CLI) | payer OTHER ==
[~2025-04-19] MED LIST changes: -AMBI5TAB PO; -FLOM0.4C39 PO; +FLUV100T20 PO; -FLUV100T25 PO; +TAMS-18 PO; +TOPI-14 PO; -TOPI200T7 PO; +ZOLP-532 PO
== END ==
LOC: M WHC 13:06
PROVIDERS: ATTEND Family Medicine
DX: Z12.31 Encounter for screening mammogram for malignant neoplasm of breast (principal); R92.323 Mammographic fibroglandular density, bilateral breasts; N63.10 Unspecified lump in the right breast, unspecified quadrant

== ENCOUNTER → 2025-05-06 | Outpatient (REF) | payer OTHER | LOC: M SFHCLERA 07:24 | PROVIDERS: ATTEND Family Medicine | DX: Z53.9 Procedure and treatment not carried out, unspecified reason (principal); Z00.00 Encounter for general adult medical examination without abnormal findings ==

== ENCOUNTER → 2025-05-08 | Outpatient (CLI) | payer OTHER | LOC: M RAD 16:32 | PROVIDERS: ATTEND Family Medicine | DX: Z12.2 Encounter for screening for malignant neoplasm of respiratory organs (principal); F17.210 Nicotine dependence, cigarettes, uncomplicated ==

== ENCOUNTER 2025-08-09 07:19 | Day surgery (SDC) | payer OTHER ==
[~2025-08-09] VITALS: Ht 160 cm; Wt 59.1 kg
[~2025-08-09 07:19] MED LIST changes: +EMGA120I SC; -IBUP-1022 PO; +IBUP600T42 PO; -NORG1TAB33; +NORG1TAB33 PO; +PRIL20TA2 PO; +RIME75TA PO; +ZOLP12.561 PO
[2025-08-09] MEDS ORDERED: LIDOCAINE 2% 100 MG/5 ML SDV (FOR ANES.) As Ordered ONE (09:02)
[2025-08-09 09:33] VITALS: TEMP 97.9
[2025-08-09 09:50] VITALS: BP 96/58; O2SAT 95
== END 2025-08-09 09:52 | disposition home or self-care (01) ==
LOC: M OPP 07:19
PROVIDERS: ATTEND Internal Medicine Gastroenterology
DX: Z12.11 Encounter for screening for malignant neoplasm of colon (principal); D12.8 Benign neoplasm of rectum; Z79.899 Other long term (current) drug therapy; F17.210 Nicotine dependence, cigarettes, uncomplicated